=== PATIENT | female | born 1960 | race Caucasian/White ===

== ENCOUNTER 2019-06-19 12:36 | Emergency (ER) | payer OTHER, MEDICAID, SELFPAY ==
[2019-06-19 12:45] VITALS: BP 109/74; PULSE 76; RESP 16; TEMP 36.9; O2SAT 98; BMI 20.3
[2019-06-19 16:01] VITALS: BP 116/70; PULSE 60; RESP 16; O2SAT 98
--- NOTE | 2019-06-19 16:53 | DI.CT.S_ITS ---
PROCEDURE: CT ORBIT BI W CON INDICATIONS: L eye, facial pain with fever, swelling TECHNIQUE: After the administration of intravenous contrast, 2.5 mm axial images acquired through the orbits, with coronal and sagittal reformats. For radiation dose reduction, the following was used: automated exposure control, adjustment of mA and/or kV according to patient size. COMPARISON: None. FINDINGS: Image quality: Excellent. Orbits: Mild periorbital soft tissue swelling. Globes are symmetrical. The optic nerves are normal in size and enhancement. No retrobulbar masses or fat abnormalities. The extra-ocular muscles are normal and symmetrical in appearance. Increased left lacrimal gland enhancement. Optic chiasm is normal. Intracranial: The pituitary gland is normal, without sellar or suprasellar masses. Visualized cerebral hemispheres, brainstem, and spinal cord appear normal. Bones and sinuses: Visualized calvarium and facial bones appear intact. Visualized sinuses and mastoids are clear. IMPRESSION: 1. Mild periorbital soft tissue swelling consistent with cellulitis. 2. Increased left lacrimal gland enhancement which is nonspecific and suggests inflammatory or infectious process. 3. No orbital mass or fluid collection. Dictated by: Alison Chacon M.D. on 06/19/2019 at 18:09 Approved by: Alison Chacon M.D. on 06/19/2019 at 18:12
[2019-06-19] MEDS: FLUORESCEIN 1 MG STRIP EYE-LEFT (16:56)
[2019-06-19] MEDS: PROPARACAINE 0.5% OPHTH SOL 2 DROPS EYE-BOTH (16:56)
[2019-06-19 17:30] LABS: Add Manual Diff / Slide Review NO; Basophils Absolute Auto 0 /uL (0-100); Basophils Percent Auto 0.4 % (0-2); Eosinophils Absolute Auto 100 /uL (0-450); Eosinophils Percent Auto 1.1 % (2-4); Hematocrit 41.4 % (36-46); Hemoglobin 13.8 g/dL (12.0-16.0); Lymphocytes Absolute Auto 2100 /uL (1100-4500); Mean Corpuscular HGB Conc 33.4 % (30-36); Mean Corpuscular Hemoglobin 31.9 PG (26-34); Mean Corpuscular Volume 95.4 fL (80-100); Monocytes Absolute Auto 400 /uL (0-900); Monocytes Percent Auto 6.6 % (3-14); Neutrophils Absolute Auto 3200 /uL (1500-7000); Neutrophils Percent Auto 55.9 % (50-75); Platelet Count 241 X10^3/uL (150-400); Red Blood Cell Count 4.34 X10^6/uL (4.0-5.2); Red Cell Distribution Width 13.4 % (11.6-14.8); White Blood Cell Count 5.7 X10^3/uL (4.5-11.0)
[2019-06-19 17:40] LABS: Blood Urea Nitrogen 12 mg/dL (7-17); Calcium 8.9 mg/dL (8.4-10.2); Carbon Dioxide 32 mmol/L (22-32); Chloride 102 mmol/L (98-107); Estimated Glomerular Filt Rate > 60.0 mL/min (>60); Glucose 101 mg/dL (70-100); HEMOLYSIS < 15 (0-50); Potassium 4.2 mmol/L (3.4-5.1); Sodium 138 mmol/L (137-145)
[2019-06-19 18:44] VITALS: BP 131/74; PULSE 65; RESP 16; O2SAT 98
[2019-06-19] MEDS: cephALEXin 250 MG CAPSULE 500 MG PO (19:02)
[2019-06-19 19:13] VITALS: BP 121/85; PULSE 60; RESP 14; O2SAT 100
--- NOTE | 2019-06-20 01:02 | ED.EYEPROB ---
HPI - Eye Problem <Andrea DelucaJANY gerardo - Last Filed: 06/20/19 01:25> General Chief complaint: Eye Problems Stated complaint: Infection in left eye Time Seen by Provider: 06/19/19 16:30 Source: patient Mode of arrival: ambulatory Limitations: no limitations History of Present Illness HPI Narrative: This is a 58-year-old female, , nonsmoker, contact lens user who presents to ED alone with chief complain of left eye infection since 06/14/19. She was initially evaluated at [facility] department and was diagnosed with internal stye on left upper eyelid and prescribed with antibiotic eyedrops which she cannot recall the name. She reports has not been using contact lenses since she was diagnosed with a stye eye. The [facility] opt[facility] tried to refer her to behavior specialist clinic but there was no available appointments today since her symptoms progressively got worse. Instead, she presented to a walk-in clinic and then again refer to the ER. She reports left upper eyelid swelling, pain which radiates to left side of her face, redness, head pressure, chills, body aches, feeling fatigued, blurred vision. The pain increases with eye movements. She denies fever, nausea/vomiting, history of diabetes. Context: contact lens use Treatments Prior to Arrival: removed contact lens and other (antibiotic eye drops used Q 4hrs) Related Data Home Medications Medication Instructions Recorded Confirmed dextroamphetamine-amphetamine 20 mg PO BID 06/19/19 Previous Rx's Medication Instructions Recorded cefuroxime axetil 250 mg PO BID 10 Days #20 tab 06/19/19 Allergies Allergy/AdvReac Type Severity Reaction Status Date / Time No Known Drug Allergies Allergy Verified 06/19/19 12:45 Review of Systems <Andrea YosiJANY gerardo - Last Filed: 06/20/19 01:25> Review of Systems General: See HPI HEENT: See HPI Respiratory: Denies dyspnea, cough, wheezing, hemoptysis, sputum. Cardiovascular: Denies chest pain, palpitations, orthopnea, edema. Gastrointestinal: Denies nausea, vomiting, abdominal pain, diarrhea, constipation, melena. : Denies dysuria, frequency, incontinence, hematuria, urinary retention. Musculoskeletal: Denies weakness, joint pain or bony pain. Skin: Denies rash, skin lesions, or other. Neurologic: Denies weakness, headache, numbness, change in speech, confusion, seizures, incoordination. Psychiatric: No concerning psychosocial issues. 12-point review of systems is negative except for those stated above. PFSH <JANY Fischer - Last Filed: 06/20/19 01:25> Surgical History History of shoulder surgery (Chronic) History of primary section (Resolved) Social History Smoking Status: Never smoker Social History Smoking Status: Never smoker Exam <JANY Fischer - Last Filed: 06/20/19 01:25> Narrative Exam Narrative: GEN: Alert, oriented x 3, well appearing and nourished, and in no acute distress. Head: Normal cephalic, atraumatic. No scalp or temporal tenderness, palpable mass or rash. EYES: Pupils are equal, round, and reactive to light and accommodation. Extraocular muscles are intact bilaterally but reports discomfort. There is no subconjunctival hemorrhage, exudate. Sclera miildly injected. Edema, erythema to L upper eyelid and mild warmth to touch. Left side of face with mild edema. ENT: Bilateral auditory canals and tympanic membranes. Hearing grossly intact. Nose without bleeding, purulent discharge. Left side Face with mild swelling and tender to palpate. Mucous membrane moist, no mucosal lesion. Throat without erythema, tonsillar hypertrophy or exudate. Uvula in midline, airway patent. Neck: Trachea in midline. No JVD, non-tender without lymphadenopathy. No masses or thyroid megaly. Supple, non-tender and no meningeal signs. CARDIAC: Normal regular rate and rhythm without murmurs, gallops, or rubs. No chest wall tenderness. No peripheral edema, cyanosis or pallor. Capillary refill is less than 2 seconds. RESPIRATORY: Lungs are cleat to auscultate bilaterally. No cough, wheezes, rales, or rhonchi. No stridor, respiratory distress, increase work of breathing, or accessary muscle used. ABD: Abdomen soft, nontender and non-distended. No guarding or rebound tenderness to palpate. Bowel sounds are normal in all 4 quadrants. There is no palpable masses or organomegaly. EXT: Full painless ROM of all extremities with no loss of sensation, strength, effusion or edema. SKIN: Warm, dry, normal color for patient. No erythema, lesions or rash. BACK: Nontender without deformity or crepitance. No flank tenderness. NEUROLOGICAL: Alert and oriented to place, time and person. Sensation and motor function intact bilaterally. No facial droops, dysphasia. PSYCHIATRIC: Good judgement and reason, without hallucinations, abnormal affect or abnormal behaviors during the examination. Initial Vital Signs Initial Vital Signs: Vital Signs Temperature 98.4 F 06/19/19 12:45 Pulse Rate 76 06/19/19 12:45 Respiratory Rate 16 06/19/19 12:45 Blood Pressure 109/74 06/19/19 12:45 Pulse Oximetry 98 06/19/19 12:45 <Janice Farooq DO - Last Filed: 06/21/19 18:25> Initial Vital Signs Initial Vital Signs: Vital Signs Temperature 98.4 F 06/19/19 12:45 Pulse Rate 76 06/19/19 12:45 Respiratory Rate 16 06/19/19 12:45 Blood Pressure 109/74 06/19/19 12:45 Pulse Oximetry 98 06/19/19 12:45 Course <JANY Fischer - Last Filed: 06/20/19 01:25> Orders Ordered: Discontinued Medications Cephalexin HCl (Keflex) 500 mg PO NOW ONE Stop: 06/19/19 18:52 Last Admin: 06/19/19 19:02 Dose: 500 mg Fluorescein Sodium (Ful-Kaelyn) 1 mg EYE-LEFT NOW ONE Stop: 06/19/19 16:32 Last Admin: 06/19/19 16:56 Dose: 1 mg Proparacaine HCl (Parcaine 0.5% Ophth Janie) 2 drops EYE-BOTH NOW ONE Stop: 06/19/19 16:32 Last Admin: 06/19/19 16:56 Dose: 2 drops Vital Signs - 8 hr 06/19/19 18:44 06/19/19 19:13 Pulse Rate 65 60 Respiratory Rate 16 14 Blood Pressure 121/85 Blood Pressure [Right Arm] 131/74 Pulse Oximetry 98 100 <DO Chucho Bhatti Last Filed: 06/21/19 18:25> Orders Ordered: Discontinued Medications Cephalexin HCl (Keflex) 500 mg PO NOW ONE Stop: 06/19/19 18:52 Last Admin: 06/19/19 19:02 Dose: 500 mg Fluorescein Sodium (Ful-Kaelyn) 1 mg EYE-LEFT NOW ONE Stop: 06/19/19 16:32 Last Admin: 06/19/19 16:56 Dose: 1 mg Proparacaine HCl (Parcaine 0.5% Ophth Janie) 2 drops EYE-BOTH NOW ONE Stop: 06/19/19 16:32 Last Admin: 06/19/19 16:56 Dose: 2 drops Vital Signs - 8 hr 06/19/19 18:44 06/19/19 19:13 Pulse Rate 65 60 Respiratory Rate 16 14 Blood Pressure 121/85 Blood Pressure [Right Arm] 131/74 Pulse Oximetry 98 100 MDM - Eye Problem <JANY Fischer - Last Filed: 06/20/19 01:25> Differential Diagnosis Likely corneal abrasion, periorbital cellulitis and other (orbital cellulitis, style eye, ) Medical Records Attestation: I reviewed the patient's medical records. Lab Data Attestation: I reviewed the patient's lab results. Result diagrams: 06/19/19 17:20 06/19/19 17:20 Lab Results 06/19/19 06/19/19 Range/Units 17:20 17:20 WBC 5.7 (4.5-11.0) X10^3/uL RBC 4.34 (4.0-5.2) X10^6/uL Hgb 13.8 (12.0-16.0) g/dL Hct 41.4 (36-46) % MCV 95.4 (80-100) fL MCH 31.9 (26-34) PG MCHC 33.4 (30-36) % RDW 13.4 (11.6-14.8) % Plt Count 241 (150-400) X10^3/uL Neut % (Auto) 55.9 (50-75) % Lymph % (Auto) 36.0 (25-40) % [place] % (Auto) 6.6 (3-14) % Eos % (Auto) 1.1 L (2-4) % Baso % (Auto) 0.4 (0-2) % Neut # (Auto) 3200 (3151-6580) /uL Lymph # (Auto) 2100 (1956-1712) /uL [place] # (Auto) 400 (0-900) /uL Eos # (Auto) 100 (0-450) /uL Baso # (Auto) 0 (0-100) /uL Sodium 138 (137-145) mmol/L Potassium 4.2 (3.4-5.1) mmol/L Chloride 102 (98-107) mmol/L Carbon Dioxide 32 (22-32) mmol/L BUN 12 (7-17) mg/dL Creatinine 0.60 (0.52-1.04) mg/dL Estimated GFR > 60.0 (>60) mL/min BUN/Creatinine Ratio 20.0 (6-22) Glucose 101 H (70-100) mg/dL Calcium 8.9 (8.4-10.2) mg/dL Imaging Data CT-Orbit: Radiologist's impression: [address] [address] [address] Scan Report Signed Patient: Denise Vasquez [facility]#: [id number] : 1960Acct:[id number] Age/Sex: 58 / FDate of Service: 06/19/19 Loc: ED Accession Number: [id number] Procedure: CT orbit BI w con Ordering Provider: Andrea Collins PROCEDURE: CT ORBIT BI W CON INDICATIONS: L eye, facial pain with fever, swelling TECHNIQUE: After the administration of intravenous contrast, 2.5 mm axial images acquired through the orbits, with coronal and sagittal reformats. For radiation dose reduction, the following was used: automated exposure control, adjustment of mA and/or kV according to patient size. COMPARISON: None. FINDINGS: Image quality: Excellent. Orbits: Mild periorbital soft tissue swelling. Globes are symmetrical. The optic nerves are normal in size and enhancement. No retrobulbar masses or fat abnormalities. The extra-ocular muscles are normal and symmetrical in appearance. Increased left lacrimal gland enhancement. Optic chiasm is normal. Intracranial: The pituitary gland is normal, without sellar or suprasellar masses. Visualized cerebral hemispheres, brainstem, and spinal cord appear normal. Bones and sinuses: Visualized calvarium and facial bones appear intact. Visualized sinuses and mastoids are clear. IMPRESSION: 1. Mild periorbital soft tissue swelling consistent with cellulitis. 2. Increased left lacrimal gland enhancement which is nonspecific and suggests inflammatory or infectious process. 3. No orbital mass or fluid collection. Dictated by: Alison Chacon M.D. on 06/19/2019 at 18:09 Approved by: Alison Chacon M.D. on 06/19/2019 at 18:12 [facility] Narrative Medical decision making narrative: This is a 58 you're female presents with left upper eyelid swelling, pain, redness which started 4 days ago. This has been progressively worsening despite using antibiotic eyedrops that was prescribed by [facility] for internal stye eye. Patient denies fever, vomiting. She reports chills, body aches, fatigue, head pressure, pain spreading to her left side of the face. The patient's CBC and BNP were unremarkable. CT of the orbit with IV contrast was ordered and it shows mild periorbital soft tissue swelling consistent with cellulitis. Increased left lacrimal gland enhancement which is nonspecific and suggests inflammatory or infectious process. There was no orbital mass or fluid collection. ENT specialist Dr. Etienne Kee was consulted by phone call, he kindly agrees to see this patient tomorrow morning to follow up. The patient was medicated with Keflex 500 mg prior to DC to home due to Ceftin not available for 250 mg dose in ED. Patient was prescribed with Ceftin 250 mg b.i.d. dose for 10 days which she will start tomorrow a.m. as suggested by Dr. Kee. Patient was advised to keep her head of bed elevated and use warm pack on affected site. Patient had no questions at this time and agrees with treatment plan. The contact number for Dr. Kee's office has provided for patient to follow up. <Janice Farooq, DO - Last Filed: 06/21/19 18:25> Lab Data Lab Results 06/19/19 06/19/19 Range/Units 17:20 17:20 WBC 5.7 (4.5-11.0) X10^3/uL RBC 4.34 (4.0-5.2) X10^6/uL Hgb 13.8 (12.0-16.0) g/dL Hct 41.4 (36-46) % MCV 95.4 (80-100) fL MCH 31.9 (26-34) PG MCHC 33.4 (30-36) % RDW 13.4 (11.6-14.8) % Plt Count 241 (150-400) X10^3/uL Neut % (Auto) 55.9 (50-75) % Lymph % (Auto) 36.0 (25-40) % [place] % (Auto) 6.6 (3-14) % Eos % (Auto) 1.1 L (2-4) % Baso % (Auto) 0.4 (0-2) % Neut # (Auto) 3200 (3645-5185) /uL Lymph # (Auto) 2100 (7626-3449) /uL [place] # (Auto) 400 (0-900) /uL Eos # (Auto) 100 (0-450) /uL Baso # (Auto) 0 (0-100) /uL Sodium 138 (137-145) mmol/L Potassium 4.2 (3.4-5.1) mmol/L Chloride 102 (98-107) mmol/L Carbon Dioxide 32 (22-32) mmol/L BUN 12 (7-17) mg/dL Creatinine 0.60 (0.52-1.04) mg/dL Estimated GFR > 60.0 (>60) mL/min BUN/Creatinine Ratio 20.0 (6-22) Glucose 101 H (70-100) mg/dL Calcium 8.9 (8.4-10.2) mg/dL Discharge Plan Departure Patient Disposition: Home Clinical Impression: Periorbital cellulitis of left eye, Infection of lacrimal gland Discharge Date/Time: 06/19/19 19:14 Interventions: ED Discharge Assessment Last Done: 06/19/19 19:13 Instructions: DI for Orbital Cellulitis Activity Restrictions/Additional Instructions: You have been diagnosed with [ Periorbital cellulitis and possibly lacrimnal gland inflammation or infection according to the CT test. Your blood test looks good. What to do: *Take your medications as directed. The prescription for Ceftin 250 mg by mouth at twice a day was transmitted to [facility]. Please continue to take this medication from tomorrow morning. You are treated with the 1st dose of Keflex while in the ER because of the availability. Please complete the full course of antibiotic medications unless this causes an allergy reaction. Please elevated you're had a bed to help with the swelling and used a warm pack on your affected eye. *Please follow up with Etienne Mirza tomorrow morning. He is expecting to see you at his office and please give the office a call in the morning. Follow up with your primary care provider in 2-3 days, call for an appointment. Let them know you were seen in the ED and that we asked you to be seen in follow up. *Return to ED if you have any new, worsening, or concerning symptoms, such as increasing pain, fever, swelling, redness, worsening vision, chest pain, breathing difficulty, unable to tolerate fluid, fatigue or any acute concerns. Prescriptions: New cefuroxime axetil 250 mg tablet 250 mg PO BID 10 Days Qty: 20 RF: 0 No Action dextroamphetamine-amphetamine 20 mg tablet 20 mg PO BID RF: 0 Referrals: Etienne Kee MD [Physician] - <Janice Farooq DO - Last Filed: 06/21/19 18:25> Cosign ED Attending Cosignature Attestation: I was immediately available in the department for consultation. This documentation has been reviewed and I agree with assessment and plan. Supervised by Janice Farooq DO
--- NOTE | 2019-06-20 01:25 | ED_ITS ---
HPI - Eye Problem <Andrea DelucaJANY gerardo - Last Filed: 06/20/19 01:25> General Chief complaint: Eye Problems Stated complaint: Infection in left eye Time Seen by Provider: 06/19/19 16:30 Source: patient Mode of arrival: ambulatory Limitations: no limitations History of Present Illness HPI Narrative: This is a 58-year-old female, , nonsmoker, contact lens user who presents to ED alone with chief complain of left eye infection since 06/14/19. She was initially evaluated at [facility] optometry department and was diagnosed with internal stye on left upper eyelid and prescribed with antibiotic eyedrops which she cannot recall the name. She reports has not been using contact lenses since she was diagnosed with a stye eye. The [facility] optometry tried to refer her to [facility] but there was no available appointments today since her symptoms progressively got worse. Instead, she presented to a walk-in clinic and then again refer to the ER. She reports left upper eyelid swelling, pain which radiates to left side of her face, redness, head pressure, chills, body aches, feeling fatigued, blurred vision. The pain increases with eye movements. She denies fever, nausea/vomiting, history of diabetes. Context: contact lens use Treatments Prior to Arrival: removed contact lens and other (antibiotic eye drops used Q 4hrs) Related Data Home Medications Medication Instructions Recorded Confirmed dextroamphetamine-amphetamine 20 mg PO BID 06/19/19 Previous Rx's Medication Instructions Recorded cefuroxime axetil 250 mg PO BID 10 Days #20 tab 06/19/19 Allergies Allergy/AdvReac Type Severity Reaction Status Date / Time No Known Drug Allergies Allergy Verified 06/19/19 12:45 Review of Systems <Andrea YosiJANY gerardo - Last Filed: 06/20/19 01:25> Review of Systems General: See HPI HEENT: See HPI Respiratory: Denies dyspnea, cough, wheezing, hemoptysis, sputum. Cardiovascular: Denies chest pain, palpitations, orthopnea, edema. Gastrointestinal: Denies nausea, vomiting, abdominal pain, diarrhea, constipation, melena. : Denies dysuria, frequency, incontinence, hematuria, urinary retention. Musculoskeletal: Denies weakness, joint pain or bony pain. Skin: Denies rash, skin lesions, or other. Neurologic: Denies weakness, headache, numbness, change in speech, confusion, seizures, incoordination. Psychiatric: No concerning psychosocial issues. 12-point review of systems is negative except for those stated above. PFSH <JANY Fischer - Last Filed: 06/20/19 01:25> Surgical History History of shoulder surgery (Chronic) History of primary section (Resolved) Social History Smoking Status: Never smoker Social History Smoking Status: Never smoker Exam <JANY Fischer - Last Filed: 06/20/19 01:25> Narrative Exam Narrative: GEN: Alert, oriented x 3, well appearing and nourished, and in no acute distress. Head: Normal cephalic, atraumatic. No scalp or temporal tenderness, palpable ma ss or rash. EYES: Pupils are equal, round, and reactive to light and accommodation. Extraocular muscles are intact bilaterally but reports discomfort. There is no subconjunctival hemorrhage, exudate. Sclera miildly injected. Edema, erythema to L upper eyelid and mild warmth to touch. Left side of face with mild edema. ENT: Bilateral auditory canals and tympanic membranes. Hearing grossly intact. Nose without bleeding, purulent discharge. Left side Face with mild swelling and tender to palpate. Mucous membrane moist, no mucosal lesion. Throat without erythema, tonsillar hypertrophy or exudate. Uvula in midline, airway patent. Neck: Trachea in midline. No JVD, non-tender without lymphadenopathy. No masses or thyroid megaly. Supple, non-tender and no meningeal signs. CARDIAC: Normal regular rate and rhythm without murmurs, gallops, or rubs. No chest wall tenderness. No peripheral edema, cyanosis or pallor. Capillary refill is less than 2 seconds. RESPIRATORY: Lungs are cleat to auscultate bilaterally. No cough, wheezes, rales, or rhonchi. No stridor, respiratory distress, increase work of breathing, or accessary muscle used. ABD: Abdomen soft, nontender and non-distended. No guarding or rebound tenderness to palpate. Bowel sounds are normal in all 4 quadrants. There is no palpable masses or organomegaly. EXT: Full painless ROM of all extremities with no loss of sensation, strength, effusion or edema. SKIN: Warm, dry, normal color for patient. No erythema, lesions or rash. BACK: Nontender without deformity or crepitance. No flank tenderness. NEUROLOGICAL: Alert and oriented to place, time and person. Sensation and motor function intact bilaterally. No facial droops, dysphasia. PSYCHIATRIC: Good judgement and reason, without hallucinations, abnormal affect or abnormal behaviors during the examination. Initial Vital Signs Initial Vital Signs: Vital Signs Temperature 98.4 F 06/19/19 12:45 Pulse Rate 76 06/19/19 12:45 Respiratory Rate 16 06/19/19 12:45 Blood Pressure 109/74 06/19/19 12:45 Pulse Oximetry 98 06/19/19 12:45 <Janice Farooq DO - Last Filed: 06/21/19 18:25> Initial Vital Signs Initial Vital Signs: Vital Signs Temperature 98.4 F 06/19/19 12:45 Pulse Rate 76 06/19/19 12:45 Respiratory Rate 16 06/19/19 12:45 Blood Pressure 109/74 06/19/19 12:45 Pulse Oximetry 98 06/19/19 12:45 Course <JANY Fischer - Last Filed: 06/20/19 01:25> Orders Ordered: Discontinued Medications Cephalexin HCl (Keflex) 500 mg PO NOW ONE Stop: 06/19/19 18:52 Last Admin: 06/19/19 19:02 Dose: 500 mg Fluorescein Sodium (Ful-Kaelyn) 1 mg EYE-LEFT NOW ONE Stop: 06/19/19 16:32 Last Admin: 06/19/19 16:56 Dose: 1 mg Proparacaine HCl (Parcaine 0.5% Ophth Janie) 2 drops EYE-BOTH NOW ONE Stop: 06/19/19 16:32 Last Admin: 06/19/19 16:56 Dose: 2 drops Vital Signs - 8 hr 06/19/19 18:44 06/19/19 19:13 Pulse Rate 65 60 Respiratory Rate 16 14 Blood Pressure 121/85 Blood Pressure [Right Arm] 131/74 Pulse Oximetry 98 100 <DO Chucho Bhatti Last Filed: 06/21/19 18:25> Orders Ordered: Discontinued Medications Cephalexin HCl (Keflex) 500 mg PO NOW ONE Stop: 06/19/19 18:52 Last Admin: 06/19/19 19:02 Dose: 500 mg Fluorescein Sodium (Ful-Kaelyn) 1 mg EYE-LEFT NOW ONE Stop: 06/19/19 16:32 Last Admin: 06/19/19 16:56 Dose: 1 mg Proparacaine HCl (Parcaine 0.5% Ophth Janie) 2 drops EYE-BOTH NOW ONE Stop: 06/19/19 16:32 Last Admin: 06/19/19 16:56 Dose: 2 drops Vital Signs - 8 hr 06/19/19 18:44 06/19/19 19:13 Pulse Rate 65 60 Respiratory Rate 16 14 Blood Pressure 121/85 Blood Pressure [Right Arm] 131/74 Pulse Oximetry 98 100 MDM - Eye Problem <JANY Fischer - Last Filed: 06/20/19 01:25> Differential Diagnosis Likely corneal abrasion, periorbital cellulitis and other (orbital cellulitis, style eye, ) Medical Records Attestation: I reviewed the patient's medical records. Lab Data Attestation: I reviewed the patient's lab results. Result diagrams: 06/19/19 17:20 06/19/19 17:20 Lab Results 06/19/19 06/19/19 Range/Units 17:20 17:20 WBC 5.7 (4.5-11.0) X10^3/uL RBC 4.34 (4.0-5.2) X10^6/uL Hgb 13.8 (12.0-16.0) g/dL Hct 41.4 (36-46) % MCV 95.4 (80-100) fL MCH 31.9 (26-34) PG MCHC 33.4 (30-36) % RDW 13.4 (11.6-14.8) % Plt Count 241 (150-400) X10^3/uL Neut % (Auto) 55.9 (50-75) % Lymph % (Auto) 36.0 (25-40) % Telfair % (Auto) 6.6 (3-14) % Eos % (Auto) 1.1 L (2-4) % Baso % (Auto) 0.4 (0-2) % Neut # (Auto) 3200 (1463-2122) /uL Lymph # (Auto) 2100 (4162-3777) /uL [place] # (Auto) 400 (0-900) /uL Eos # (Auto) 100 (0-450) /uL Baso # (Auto) 0 (0-100) /uL Sodium 138 (137-145) mmol/L Potassium 4.2 (3.4-5.1) mmol/L Chloride 102 (98-107) mmol/L Carbon Dioxide 32 (22-32) mmol/L BUN 12 (7-17) mg/dL Creatinine 0.60 (0.52-1.04) mg/dL Estimated GFR > 60.0 (>60) mL/min BUN/Creatinine Ratio 20.0 (6-22) Glucose 101 H (70-100) mg/dL Calcium 8.9 (8.4-10.2) mg/dL Imaging Data CT-Orbit: Radiologist's impression: [address] [address] [address] Scan Report Signed Patient: Denise Vasquez [facility]#: [id number] : 1960Acct:[id number] Age/Sex: 58 / FDate of Service: 06/19/19 Loc: ED Accession Number: [id number] Procedure: CT orbit BI w con Ordering Provider: Andrea Collins PROCEDURE: CT ORBIT BI W CON INDICATIONS: L eye, facial pain with fever, swelling TECHNIQUE: After the administration of intravenous contrast, 2.5 mm axial images acquired through the orbits, with coronal and sagittal reformats. For radiation dose reduction, the following was used: automated exposure control, adjustment of mA and/or kV according to patient size. COMPARISON: None. FINDINGS: Image quality: Excellent. Orbits: Mild periorbital soft tissue swelling. Globes are symmetrical. The optic nerves are normal in size and enhancement. No retrobulbar masses or fat abnormalities. The extra-ocular muscles are normal and symmetrical in appearance. Increased left lacrimal gland enhancement. Optic chiasm is normal. Intracranial: The pituitary gland is normal, without sellar or suprasellar masses. Visualized cerebral hemispheres, brainstem, and spinal cord appear normal. Bones and sinuses: Visualized calvarium and facial bones appear intact. Visualized sinuses and mastoids are clear. IMPRESSION: 1. Mild periorbital soft tissue swelling consistent with cellulitis. 2. Increased left lacrimal gland enhancement which is nonspecific and suggests inflammatory or infectious process. 3. No orbital mass or fluid collection. Dictated by: Alison Chacon M.D. on 06/19/2019 at 18:09 Approved by: Alison Chacon M.D. on 06/19/2019 at 18:12 [facility] Narrative Medical decision making narrative: This is a 58 you're female presents with left upper eyelid swelling, pain, redness which started 4 days ago. This has been progressively worsening despite using antibiotic eyedrops that was prescribed by [facility] classroom assistant for internal stye eye. Patient denies fever, vomiting. She reports chills, body aches, fatigue, head pressure, pain spreading to her left side of the face. The patient's CBC and BNP were unremarkable. CT of the orbit with IV contrast was ordered and it shows mild periorbital soft tissue swelling consistent with cellulitis. Increased left lacrimal gland enhancement which is nonspecific and suggests inflammatory or infectious process. There was no orbital mass or fluid collection. ENT specialist Dr. Etienne Kee was consulted by phone call, he kindly agrees to see this patient tomorrow morning to follow up. The patient was medicated with Keflex 500 mg prior to DC to home due to Ceftin not available for 250 mg dose in ED. Patient was prescribed with Ceftin 250 mg b.i.d. dose for 10 days which she will start tomorrow a.m. as suggested by Dr. Kee. Patient was advised to keep her head of bed elevated and use warm pack on affected site. Patient had no questions at this time and agrees with treatment plan. The contact number for Dr. Kee's office has provided for patient to follow up. <Janice Farooq, DO - Last Filed: 06/21/19 18:25> Lab Data Lab Results 06/19/19 06/19/19 Range/Units 17:20 17:20 WBC 5.7 (4.5-11.0) X10^3/uL RBC 4.34 (4.0-5.2) X10^6/uL Hgb 13.8 (12.0-16.0) g/dL Hct 41.4 (36-46) % MCV 95.4 (80-100) fL MCH 31.9 (26-34) PG MCHC 33.4 (30-36) % RDW 13.4 (11.6-14.8) % Plt Count 241 (150-400) X10^3/uL Neut % (Auto) 55.9 (50-75) % Lymph % (Auto) 36.0 (25-40) % [place] % (Auto) 6.6 (3-14) % Eos % (Auto) 1.1 L (2-4) % Baso % (Auto) 0.4 (0-2) % Neut # (Auto) 3200 (4809-3034) /uL Lymph # (Auto) 2100 (5889-3101) /uL [place] # (Auto) 400 (0-900) /uL Eos # (Auto) 100 (0-450) /uL Baso # (Auto) 0 (0-100) /uL Sodium 138 (137-145) mmol/L Potassium 4.2 (3.4-5.1) mmol/L Chloride 102 (98-107) mmol/L Carbon Dioxide 32 (22-32) mmol/L BUN 12 (7-17) mg/dL Creatinine 0.60 (0.52-1.04) mg/dL Estimated GFR > 60.0 (>60) mL/min BUN/Creatinine Ratio 20.0 (6-22) Glucose 101 H (70-100) mg/dL Calcium 8.9 (8.4-10.2) mg/dL Discharge Plan Departure Patient Disposition: Home Clinical Impression: Periorbital cellulitis of left eye, Infection of lacrimal gland Discharge Date/Time: 06/19/19 19:14 Interventions: ED Discharge Assessment Last Done: 06/19/19 19:13 Instructions: DI for Orbital Cellulitis Activity Restrictions/Additional Instructions: You have been diagnosed with [ Periorbital cellulitis and possibly lacrimnal gland inflammation or infection according to the CT test. Your blood test looks good. What to do: *Take your medications as directed. The prescription for Ceftin 250 mg by mouth at twice a day was transmitted to [facility]. Please continue to take this medication from tomorrow morning. You are treated with the 1st dose of Keflex while in the ER because of the availability. Please complete the full course of antibiotic medications unless this causes an allergy reaction. Please elevated you're had a bed to help with the swelling and used a warm pack on your affected eye. *Please follow up with Etienne Mirza tomorrow morning. He is expecting to see you at his office and please give the office a call in the morning. Follow up with your primary care provider in 2-3 days, call for an appointment. Let them know you were seen in the ED and that we asked you to be seen in follow up. *Return to ED if you have any new, worsening, or concerning symptoms, such as increasing pain, fever, swelling, redness, worsening vision, chest pain, breathing difficulty, unable to tolerate fluid, fatigue or any acute concerns. Prescriptions: New cefuroxime axetil 250 mg tablet 250 mg PO BID 10 Days Qty: 20 RF: 0 No Action dextroamphetamine-amphetamine 20 mg tablet 20 mg PO BID RF: 0 Referrals: Etienne Kee MD [Physician] - <Janice Farooq DO - Last Filed: 06/21/19 18:25> Cosign ED Attending Cosignature Attestation: I was immediately available in the department for consultation. This documentation has been reviewed and I agree with assessment and plan. Supervised by Janice Farooq DO
== END 2019-06-19 19:14 | disposition home or self-care (01) ==
PROVIDERS: Emergency Provider Nurse Practitioner Family
DX: L03.213 Periorbital cellulitis (principal)
CPT/HCPCS: 36415; 36591; 70481; 80048; 85025; 99283; 99284; Q9967

== ENCOUNTER → 2020-12-13 10:12 | Outpatient (CLI) | payer OTHER, MEDICAID, SELFPAY ==
[2020-12-13] MEDS: COVID-19 VACC #1, MRNA(MOD) 100 MCG/0.5 ML VIAL IM (10:24)
== END ==
PROVIDERS: Visit Provider Internal Medicine
DX: Z23 Encounter for immunization (principal)
CPT/HCPCS: 0011A; 91301

== ENCOUNTER → 2021-01-10 10:16 | Outpatient (CLI) | payer OTHER, MEDICAID, SELFPAY ==
[2021-01-10] MEDS: COVID-19 VACC #2, MRNA(MOD) 100 MCG/0.5 ML VIAL IM (10:19)
== END ==
PROVIDERS: Visit Provider Internal Medicine
DX: Z23 Encounter for immunization (principal)
CPT/HCPCS: 0012A; 91301

== ENCOUNTER 2025-04-28 14:09 | Emergency (ER) | payer OTHER, MEDICAID, SELFPAY ==
[2025-04-28 14:19] VITALS: BP 125/64; PULSE 56; RESP 17; TEMP 36.6; O2SAT 96; BMI 22.1
[2025-04-28 16:49] VITALS: BP 126/63; PULSE 63; RESP 16; O2SAT 96
--- NOTE | 2025-04-28 16:58 | ED_ITS ---
HPI - Recheck/Abnormal Lab/Rx General Chief Complaint: Recheck/Abnormal Lab/Rx Stated Complaint: med refill no pcp Time Seen by Provider: 04/28/25 16:47 Source: patient Mode of arrival: Ambulatory History of Present Illness HPI narrative: 64-year-old female history of ADHD previously on Adderall last prescribed back in January in [place] but unable to transfer her prescriptions [place] the state went to 2 different walk-in clinics unable to get it filled. She is relocating back here and has no other complaints at this time. Other than what is stated 14 point review of systems negative. Related Data Home Medications ?Medication ?Instructions ?Recorded ?Confirmed dextroamphetamine-amphetamine 20 20 mg PO BID 06/19/19 mg tablet Previous Rx's ?Medication ?Instructions ?Recorded dextroamphetamine-amphetamine ER 20 mg PO DAILY #30 ca ps 04/28/25 20 mg 24hr capsule,extend release Allergies Allergy/AdvReac Type Severity Reaction Status Date / Time No Known Drug Allergies Allergy Verified 04/28/25 14:19 Review of Systems Review of Systems ROS Unobtainable: All systems reviewed & are unremarkable except as noted in HPI and below Patient History Surgical History History of shoulder surgery History of primary section alcohol intake frequency: holidays/special occasions only Exam Narrative Exam Narrative: GENERAL: [64] year old patient appears stated age. Well-developed patient, in mild distress. HEAD: Atraumatic. Normocephalic. EYES: Pupils equal round and reactive. Extraocular motions intact. No scleral icterus. No injection or drainage. NECK: Trachea midline. Non tender CARDIOVASCULAR: Regular rate and rhythm without murmurs, gallops, or rubs. RESPIRATORY: Clear to auscultation. Breath sounds equal bilaterally. No wheezes, rales, or rhonchi. GASTROINTESTINAL: Abdomen soft, non-tender, nondistended. EXTREMITIES: No edema or joint tenderness. BACK: Nontender without deformity or crepitance. No flank tenderness. NEURO: AOx3. SKIN: No rash or erythema of visible areas Initial Vital Signs Initial Vital Signs: Vital Signs Temperature 97.9 F 04/28/25 14:19 Pulse Rate 56 L 04/28/25 14:19 Respiratory Rate 17 04/28/25 14:19 Blood Pressure 125/64 04/28/25 14:19 Pulse Oximetry 96 04/28/25 14:19 Oxygen Delivery Method Room Air 04/28/25 14:19 Course Vital Signs Vital signs: Vital Signs - 8 hr 04/28/25 14:19 04/28/25 16:49 04/28/25 16:49 Temperature 97.9 F Pulse Rate 56 L 63 Respiratory Rate 17 16 Blood Pressure 125/64 126/63 Pulse Oximetry 96 96 Oxygen Delivery Method Room Air MDM - Recheck/Abnormal Lab/Rx MDM Narrative Medical decision making narrative: Vital signs, nurse triage note, medication list, and previous ER visits reviewed. Differential diagnosis include ADHD, medication refill, noncompliance with medication. I have asked that she gets reestablish with a PCP to continue getting her prescriptions refilled as needed. Discharge Plan Departure Patient Disposition: Home Clinical Impression: Encounter for medication refill Activity Restrictions/Additional Instructions: Return with new or worsening symptoms. Take your medicines as directed. Please get established with PCP for further refills. Prescriptions: New dextroamphetamine-amphetamine 20 mg capsule,extended release 24hr 20 mg PO DAILY Qty: 30 0RF No Action dextroamphetamine-amphetamine 20 mg tablet 20 mg PO BID Patient Comments: TK 1 T PO BID Stand Alone Forms: Patient Portal/API
== END 2025-04-28 17:09 | disposition home or self-care (01) ==
PROVIDERS: Emergency Provider Family Medicine
DX: Z76.0 Encounter for issue of repeat prescription (principal)
CPT/HCPCS: 99281